=== PATIENT | female | born 1995 | race Caucasian/White ===

== ENCOUNTER 2017-10-17 09:45 | Emergency (ER) | payer BC ==
[~2017-10-17] VITALS: Ht 160 cm; Wt 56.0 kg
[2017-10-17 09:45] VITALS: TEMP 36.6; O2SAT 100; Ht 160 cm; Wt 56.0 kg
[2017-10-17] MEDS ORDERED: SODIUM CHLORIDE 0.9% 1000ML 1,000 ML IV STA (09:51)
--- NOTE | 2017-10-17 10:11 | EMERGENCY ROOM VISIT NOTE ---
History Report prepared by Ranulfoibjaz: Vania Tomlinson Under the Supervision of: Dr. Bobby Jones D.O. First contact with patient: 09:46 Stated Complaint: SEIZURE History of Present Illness The patient is a 20 year old female who presents to the Emergency Room with complaints of a syncopal episode that occurred this morning. She was brought to the ED via EMS. EMS reports the patient was taking a final exam when she passed out. She apparently stood up during the exam and then fell over, striking her head. She briefly lost consciousness as she does not remember standing up, and notes she was not finished with the exam. The patient denies taking any Adderall or other drugs recently. She admits she slept less than normal last night. She drank 1 cup of coffee this morning and states she felt fine when she woke up and went on a run. She has never experienced similar symptoms after running but admits to having "a weak stomach". She states she feels "OK" here in the ED, but "a little shaky". She was nauseous before the episode but has not vomited. She admits to a headache. She denies any neck pain, chest pain, shortness of breath or diarrhea. 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 A total of 10 systems reviewed and were otherwise negative. Past Medical & Surgical Medical Problems: (1) No significant past medical history Social History Alcohol Use: occasionally Drug Use: none Marital Status: single Housing Status: lives with roommate Occupation Status: [employer] student Current/Historical Medications No Active Prescriptions or Reported Meds Allergies Coded Allergies: No Known Allergies (Unverified , 10/17/17) Physical Exam Vital Signs Date Time Temp Pulse Resp B/P (MAP) Pulse Ox O2 Delivery O2 Flow Rate FiO2 10/17/17 12:03 66 20 113/64 100 10/17/17 11:30 62 20 116/68 100 Room Air 10/17/17 11:00 70 20 120/70 99 Room Air 10/17/17 10:39 86 20 106/72 100 Room Air 10/17/17 10:38 64 119/69 72 120/70 86 106/72 5/3/18 09:55 69 10/17/17 09:45 36.6 76 20 114/66 100 Room Air 10/17/17 09:45 100 Room Air Physical Exam GENERAL: Patient is awake, alert in no acute distress patient is resting comfortably and showing no signs of anxiety EYES: The conjunctivae are clear. The pupils are round and reactive. EARS, NOSE, MOUTH AND THROAT: The nose is without any evidence of any deformity. Mucous membranes are moist tongue is midline. Bruise over right eyebrow. NECK: The neck is nontender and supple. RESPIRATORY: Normal respiratory effort is noted there is no evidence of wheezing rhonchi or rales CARDIOVASCULAR: Regular rate and rhythm noted there no murmurs rubs or gallops normal S1 normal S2 GASTROINTESTINAL: The abdomen is soft. Bowel sounds are present in all quadrants. Abdomen is nontender BACK: No midline tenderness or or step-off noted range of motion in flexion extension as well as rotation no signs of muscle spasm noted MUSCULOSKELETAL/EXTREMITIES: There is no evidence of gross deformity full range of motion is noted in the hips and shoulders SKIN: There is no obvious evidence of any rash. There are no petechiae, pallor or cyanosis noted. NEUROLOGIC: Patient is awake alert and oriented x3 strength is symmetric patellar reflexes are 2+ bilaterally Medical Decision & Procedures ER Provider Diagnostic Interpretation: Radiology results as stated below per my review and radiologist interpretation: CHEST ONE VIEW PORTABLE CLINICAL HISTORY: EVALUATE ALTERED MENTAL STATUS/WEAKNESS dyspnea COMPARISON STUDY: No previous studies for comparison. FINDINGS: The bones soft tissues and hemidiaphragms are normal. The cardiomediastinal silhouette is normal. The lungs are clear. The pulmonary vasculature is normal. IMPRESSION: Negative chest. The above report was generated using voice recognition software. It may contain grammatical, syntax or spelling errors. Electronically signed by: Jono Coto M.D. 10/17/2017 10:25 AM Laboratory Results 10/17/17 10:25 Red Blood Count 4.93, Mean Corpuscular Volume 79.1, Mean Corpuscular Hemoglobin 28.4, Mean Corpuscular Hemoglobin Concent 35.9, Mean Platelet Volume 10.0, Neutrophils (%) (Auto) 67.6, Lymphocytes (%) (Auto) 24.6, Monocytes (%) (Auto) 5.8, Eosinophils (%) (Auto) 1.1, Basophils (%) (Auto) 0.9, Neutrophils # (Auto) 3.02, Lymphocytes # (Auto) 1.10, Monocytes # (Auto) 0.26, Eosinophils # (Auto) 0.05, Basophils # (Auto) 0.04 10/17/17 10:25 Test 10/17/17 10:25 10/17/17 11:44 White Blood Count 4.47 K/uL (4.8-10.8) Red Blood Count 4.93 M/uL (4.2-5.4) Hemoglobin 14.0 g/dL (12.0-16.0) Hematocrit 39.0 % (37-47) Mean Corpuscular Volume 79.1 fL (80-100) Mean Corpuscular Hemoglobin 28.4 pg (25-34) Mean Corpuscular Hemoglobin Concent 35.9 g/dl (32-36) Platelet Count 264 K/uL (130-400) Mean Platelet Volume 10.0 fL (7.4-10.4) Neutrophils (%) (Auto) 67.6 % Lymphocytes (%) (Auto) 24.6 % Monocytes (%) (Auto) 5.8 % Eosinophils (%) (Auto) 1.1 % Basophils (%) (Auto) 0.9 % Neutrophils # (Auto) 3.02 K/uL (1.4-6.5) Lymphocytes # (Auto) 1.10 K/uL (1.2-3.4) Monocytes # (Auto) 0.26 K/uL (0.11-0.59) Eosinophils # (Auto) 0.05 K/uL (0-0.5) Basophils # (Auto) 0.04 K/uL (0-0.2) RDW Standard Deviation 35.9 fL (36.4-46.3) RDW Coefficient of Variation 12.4 % (11.5-14.5) Immature Granulocyte % (Auto) 0.0 % Immature Granulocyte # (Auto) 0.00 K/uL (0.00-0.02) Anion Gap 7.0 mmol/L (3-11) Est Creatinine Clear Calc Drug Dose 92.4 ml/min Estimated GFR () 123.2 Estimated GFR (Non- 106.3 BUN/Creatinine Ratio 11.5 (10-20) Calcium Level 9.2 mg/dl (8.5-10.1) Magnesium Level 1.9 mg/dl (1.8-2.4) Total Bilirubin 0.5 mg/dl (0.2-1) Direct Bilirubin 0.2 mg/dl (0-0.2) Aspartate Amino Transf (AST/SGOT) 22 U/L (15-37) Alanine Aminotransferase (ALT/SGPT) 23 U/L (12-78) Alkaline Phosphatase 79 U/L (45-117) Troponin I < 0.015 ng/ml (0-0.045) Total Protein 8.1 gm/dl (6.4-8.2) Albumin 4.6 gm/dl (3.4-5.0) Thyroid Stimulating Hormone (TSH) 2.860 uIu/ml (0.300-4.500) Human Chorionic Gonadotropin, Qual NEG (NEG) Urine Color ORANGE Urine Appearance CLEAR (CLEAR) Urine pH 6.5 (4.5-7.5) Urine Specific [place] 1.009 (1.000-1.030) Urine Protein NEG (NEG) Urine Glucose (UA) NEG (NEG) Urine Ketones NEG (NEG) Urine Occult Blood NEG (NEG) Urine Nitrite NEG (NEG) Urine Bilirubin NEG (NEG) Urine Urobilinogen NEG (NEG) Urine Leukocyte Esterase NEG (NEG) Laboratory results per my review. Medications Administered Medications (Trade) Dose Ordered Sig/[place] Route Start Time Stop Time Status Last Admin Dose Admin Sodium Chloride 1,000 ml @ 999 mls/hr Q1H1M STAT IV 10/17/17 09:51 10/17/17 10:51 DC 10/17/17 09:51 999 MLS/HR ECG Per My Interpretation Indication: syncope Rate (beats per minute): 58 Rhythm: sinus bradycardia Findings: no ectopy, other (no acute ST segment abnormalities, LVH by voltage criteria) ED Course 0950: The patient was evaluated in room B6. A complete history and physical examination were performed. 0951: NSS 1000 ml @ 999 mls/hr IV. 1020: Nursing informed me the patient has declined a CT scan. 1150: I reevaluated the patient. She is feeling well and resting comfortably. I discussed her results and discharge instructions and she verbalized complete understanding and agreement. Medical Decision Prior records/ancillary studies reviewed. Triage Nursing notes reviewed. The patient's history was concerning for syncope. Differential diagnosis: Etiologies such as vasovagal event, infection, hypoglycemia, electrolyte abnormalities, cardiac sources, intracerebral event, toxicologic, neurologic, as well as others were entertained. The patient is a 22-year-old female who presented to the emergency department for an evaluation after having a syncopal episode. The patient had no focal neurologic deficits. She had a mild headache. She did strike her right forehead when she fell. The patient had no cervical spine tenderness and her cervical spine was clinically cleared in the emergency department. I discussed patient's laboratory and radiographic studies with her. I also discussed the possibility of a syncopal episode with her. She is a runner and has not had any exertional symptoms. She was treated with IV fluids and on subsequent reevaluation was feeling much better. The patient did not wish to have a CAT scan of the head. So this was canceled. The patient was encouraged to rest and avoid any strenuous activity. She was encouraged to keep herself well hydrated and follow-up with her family doctor for further testing including echocardiogram and Holter monitoring. Otherwise she was encouraged to return to the emergency department immediately if symptoms change worsen or the need arises. Medication Reconcilliation Current Medication List: was personally reviewed by me Blood Pressure Screening Patient's blood pressure: Normal blood pressure Blood pressure disposition: Did not require urgent referral Impression Primary Impression: Syncope Additional Impression: Head injury Scribe Attestation The scribe's documentation has been prepared under my direction and personally reviewed by me in its entirety. I confirm that the note above accurately reflects all work, treatment, procedures, and medical decision making performed by me. Departure Information Dispostion Home / Self-Care Prescriptions No Active Prescriptions or Reported Meds Patient Instructions My [facility], Syncope Additional Instructions Drink plenty clear liquids. Avoid any strenuous activity. Follow-up with [facility] for reevaluation. You may require further study such as an echocardiogram and a Holter monitor to further evaluate the cause of your passing out episode. Return to the emergency department immediately if symptoms change worsen or the need arises. Problem Qualifiers Primary Impression: Syncope Syncope type: unspecified Qualified Codes: R55 - Syncope and collapse Additional Impression: Head injury Encounter type: initial encounter Qualified Codes: S09.90XA - Unspecified injury of head, initial encounter
--- NOTE | 2017-10-17 10:26 | DIAGNOSTIC IMAGING REPORT ---
CHEST ONE VIEW PORTABLE CLINICAL HISTORY: EVALUATE ALTERED MENTAL STATUS/WEAKNESS dyspnea COMPARISON STUDY: No previous studies for comparison. FINDINGS: The bones soft tissues and hemidiaphragms are normal. The cardiomediastinal silhouette is normal. The lungs are clear. The pulmonary vasculature is normal. IMPRESSION: Negative chest. The above report was generated using voice recognition software. It may contain grammatical, syntax or spelling errors. Electronically signed by: Jono Coto M.D. 10/17/2017 10:25 AM Dictated Date/Time: 10/17/2017 10:25 AM
[2017-10-17 10:41] LABS: BASO % 0.9 %; BASO ABS # 0.04 K/uL (0-0.2); EOS % 1.1 %; EOS ABS # 0.05 K/uL (0-0.5); LYMPH % 24.6 %; MEAN CELL VOLUME 79.1 fL (80-100); MEAN CORPUSCULAR HEMOGLOBIN 28.4 pg (25-34); MEAN CORPUSCULAR HGB CONC 35.9 g/dl (32-36); MONO % 5.8 %; MONO ABS # 0.26 K/uL (0.11-0.59); NEUT % 67.6 %; NEUT ABS # 3.02 K/uL (1.4-6.5); PLATELET COUNT 264 K/uL (130-400); RED CELL DISTRIBUTION WIDTH CV 12.4 % (11.5-14.5); RED CELL DISTRIBUTION WIDTH SD 35.9 fL (36.4-46.3); WHITE BLOOD COUNT 4.47 K/uL (4.8-10.8)
[2017-10-17 11:00] LABS: ALBUMIN 4.6 gm/dl (3.4-5.0); ALT/SGPT 23 U/L (12-78); AST/SGOT 22 U/L (15-37); BLOOD UREA NITROGEN 9 mg/dl (7-18); CALCIUM 9.2 mg/dl (8.5-10.1); CARBON DIOXIDE 25 mmol/L (21-32); CREATININE 0.79 mg/dl (0.60-1.20); GLUCOSE 110 mg/dl (70-99); POTASSIUM 3.6 mmol/L (3.5-5.1); SODIUM 136 mmol/L (136-145)
[2017-10-17 11:10] LABS: ALKALINE PHOSPHATASE 79 U/L (45-117); TOTAL PROTEIN 8.1 gm/dl (6.4-8.2)
[2017-10-17 12:03] VITALS: BP 113/64; PULSE 66; O2SAT 100
== END 2017-10-17 11:59 | disposition home or self-care (01) ==
LOC: C.EDB 09:47
DX: R55 Syncope and collapse (principal); S09.90XA Unspecified injury of head, initial encounter; X58.XXXA Exposure to other specified factors, initial encounter